=== PATIENT | male | born 1975 | race Caucasian/White ===

== ENCOUNTER 2019-06-23 13:55 | Emergency (ER) | payer OTHER ==
[~2019-06-23] VITALS: Ht 167.6 cm; Wt 72.6 kg
[~2019-06-23 13:55] MED LIST: HYDROCODONE-AP1 EAC6 PO; KEFLEX500 MG PO; NOHOMEMEDICATIONS; NORCO 5-325 TA1 EACH PO; PERCOCET PO; ROBAXIN 750 MG750 M1 PO; SILVADENE20 GM TP
[2019-06-23] MEDS ORDERED: LEVO-T50 MCG PO (14:15)
[2019-06-23] MEDS ORDERED: TRAMADOL 50 MG50 MG PO (15:07)
[2019-06-23 15:19] VITALS: BP 145/103
== END 2019-06-23 15:20 | disposition home or self-care (01) ==
LOC: M.ERS 13:55
DX: S60.052A Contusion of left little finger without damage to nail, initial encounter (principal); F17.210 Nicotine dependence, cigarettes, uncomplicated; W23.0XXA Caught, crushed, jammed, or pinched between moving objects, initial encounter; Y93.89 Activity, other specified; Y92.89 Other specified places as the place of occurrence of the external cause; Y99.0 Civilian activity done for income or pay